=== PATIENT | female | born 1970 | race Two or more races ===

== ENCOUNTER → 2025-10-14 | Outpatient (CLI) | payer MEDICAID, SELFPAY ==
--- NOTE | 2025-10-14 09:00 | XR_ITS ---
EXAMINATION: Esophagram standard Soft tissue lateral neck single view Upright PA chest single view 16 spot fluoroscopic films of the esophagus INDICATIONS: Difficulty swallowing this week Date and time: October 14, 2025, 1003 hours, comparison 08/08/2021 TECHNIQUE AND FINDINGS: Upright soft tissue lateral neck single view demonstrates advanced degenerative disc disease C5-C6, normal epiglottis Upright PA chest demonstrates normal heart size lungs are clear Patient swallowed thin barium with 16 spot fluoroscopic films of the esophagus, fluoroscopy 30 seconds Primary peristaltic esophageal waves There are secondary and tertiary esophageal contractions Moderate intermittent gastroesophageal reflux IMPRESSION: Significant esophageal dysmotility Moderate intermittent gastroesophageal reflux No stricture at the gastroesophageal junction No esophageal ulcerations No constricting esophageal lesion
== END | disposition home or self-care (01) ==
LOC: SDIM 08:47
PROVIDERS: PCP Family Medicine; Referring Provider Family Medicine; Visit Provider Family Medicine
DX: K21.9 Gastro-esophageal reflux disease without esophagitis (principal); K22.89 Other specified disease of esophagus
CPT/HCPCS: 74220; A4649